=== PATIENT | female | born 1975 | race Caucasian/White ===

== ENCOUNTER 2017-04-01 10:35 | Emergency (ER) | payer BC ==
[2017-04-01] MEDS ORDERED: Ketorolac 60 MG/2 ML SDV IM ONE (10:54)
--- NOTE | 2017-04-01 10:59 | EDM.PDOC ---
ED HPI GENERAL MEDICAL PROBLEM - General Chief Complaint: Lower Extremity Injury/Pain Stated Complaint: LEFT LEG PAIN Time Seen by Provider: 04/01/17 10:56 Source of Information: Reports: Patient History Limitations: Reports: No Limitations - History of Present Illness INITIAL COMMENTS - FREE TEXT/NARRATIVE: History of present illness: [41-year-old female presenting today with acute onset of pain to the dorsal aspect of her left foot radiating down into the ankle on the external lateral side she denies any history of trauma indicates she woke this way but that she does walk a lot on her feet.] Review of systems: As per history of present illness and below otherwise all systems reviewed and negative. Past medical history: As per history of present illness and as reviewed below otherwise noncontributory. Surgical history: As per history of present illness and as reviewed below otherwise noncontributory. Social history: No reported history of drug or alcohol abuse. Family history: As per history of present illness and as reviewed below otherwise noncontributory. Physical exam: HEENT: Atraumatic, normocephalic, pupils reactive, negative for conjunctival pallor or scleral icterus, mucous membranes moist, throat clear, neck supple, nontender, trachea midline. Lungs: Clear to auscultation, breath sounds equal bilaterally, chest nontender. Heart: S1S2, regular, negative for clicks, rubs, or JVD. Abdomen: Soft, nondistended, nontender. Negative for masses or hepatosplenomegaly. Negative for costovertebral tenderness. Pelvis: Stable nontender. Genitourinary: Deferred. Rectal: Deferred. Extremities: Atraumatic, negative for cords or calf pain. Neurovascular unremarkable. Some amount of point tenderness to the dorsal aspects as well as the external malleolar area of the left foot Neuro: Awake, alert, oriented. Cranial nerves II through XII unremarkable. Cerebellum unremarkable. Motor and sensory unremarkable throughout. Exam nonfocal. Diagnostics: [X-ray of left foot and ankle] Therapeutics: [60 milligrams IM Toradol IM Norflex] Impression: [#1 for pain #2 ankle pain] Plan: [Norflex, meloxicam, referral to podiatry] Definitive disposition and diagnosis as appropriate pending reevaluation and review of above. 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 Musculoskeletal History: Reports: None Neurological History: Reports: None Psychiatric History: Reports: None Endocrine/Metabolic History: Reports: None Hematologic History: Reports: None Immunologic History: Reports: None Oncologic (Cancer) History: Reports: None Dermatologic History: Reports: None - Past Surgical History Head Surgeries/Procedures: Reports: None HEENT Surgical History: Reports: Tonsillectomy Cardiovascular Surgical History: Reports: None Respiratory Surgical History: Reports: None GI Surgical History: Reports: Cholecystectomy Female Surgical History: Reports: None Endocrine Surgical History: Reports: None Neurological Surgical History: Reports: None Musculoskeletal Surgical History: Reports: None Oncologic Surgical History: Reports: None Dermatological Surgical History: Reports: None Social & Family History - Family History Family Medical History: Noncontributory - Tobacco Use Smoking Status *Q: Never Smoker Second Hand Smoke Exposure: No - Caffeine Use Caffeine Use: Reports: None - Alcohol Use Days Per Week of Alcohol Use: 0 - Recreational Drug Use Recreational Drug Use: No Review of Systems - Review of Systems Review Of Systems: See Below (History of present illness) ED EXAM, GENERAL - Physical Exam Exam: See Below (See history of present illness) Course - Vital Signs Last Recorded V/S: Last Vital Signs Temp 36.2 C 04/01/17 10:45 Pulse 101 H 04/01/17 10:45 Resp 18 04/01/17 10:45 BP 188/85 H 04/01/17 10:45 Pulse Ox 95 04/01/17 10:45 - Orders/Labs/Meds Orders: Active Orders 24 hr Category Date Time Status Ankle Min 3V Lt [CR] Stat Exams 04/01/17 10:55 Taken Foot Comp Min 3V Lt [CR] Stat Exams 04/01/17 10:55 Taken Orphenadrine [Norflex] Med 04/01/17 11:00 Active 60 mg IM Q12H Medication Orders Orphenadrine Citrate (Norflex) 60 mg IM Q12H JEN Last Admin: 04/01/17 11:19 Dose: 60 mg Meds: Medications Generic Name Dose Route Start Last Admin Trade Name Freq PRN Reason Stop Dose Admin Orphenadrine Citrate 60 mg 04/01/17 11:00 04/01/17 11:19 Norflex IM 60 mg Q12H JEN Administration Discontinued Medications Generic Name Dose Route Start Last Admin Trade Name Freq PRN Reason Stop Dose Admin Ketorolac Tromethamine 60 mg 04/01/17 10:54 04/01/17 11:19 Toradol IM 04/01/17 10:55 60 mg ONETIME ONE Administration Departure - Departure Time of Disposition: 12:10 Disposition: Home, Self-Care 01 Condition: Good Clinical Impression: Foot pain - Discharge Information Referrals: PCP,None [Primary Care Provider] - Forms: ED Department Discharge Additional Instructions: The following information is given to patients seen in the emergency department who are being discharged to home. This information is to outline your options for follow-up care. We provide all patients seen in our emergency department with a follow-up referral. The need for follow-up, as well as the timing and circumstances, are variable depending upon the specifics of your emergency department visit. If you don't have a primary care physician on staff, we will provide you with a referral. We always advise you to contact your personal physician following an emergency department visit to inform them of the circumstance of the visit and for follow-up with them and/or the need for any referrals to a consulting specialist. The emergency department will also refer you to a specialist when appropriate. This referral assures that you have the opportunity for follow-up care with a specialist. All of these measure are taken in an effort to provide you with optimal care, which includes your follow-up. Under all circumstances we always encourage you to contact your private physician who remains a resource for coordinating your care. When calling for follow-up care, please make the office aware that this follow-up is from your recent emergency room visit. If for any reason you are refused follow-up, please contact the [facility] Emergency Department at and asked to speak to the emergency department charge nurse. Take medication as directed Follow-up with Primary care in 2-3 days Follow-up with podiatry as provided Dr Samuel Freeman, SE[facility] [address] [facility] [address] [place] [address] [facility] [address] Parrish, [facility] Podiatry [address] [place] [address] - My Orders Last 24 Hours: My Active Orders 04/01/17 10:55 Ankle Min 3V Lt [CR] Stat Foot Comp Min 3V Lt [CR] Stat 04/01/17 11:00 Orphenadrine [Norflex] 60 mg IM Q12H - Assessment/Plan Last 24 Hours: My Active Orders 04/01/17 10:55 Ankle Min 3V Lt [CR] Stat Foot Comp Min 3V Lt [CR] Stat 04/01/17 11:00 Orphenadrine [Norflex] 60 mg IM Q12H
[2017-04-01] MEDS ORDERED: Morphine 10 MG/ML Syringe IM ONE (12:18)
[2017-04-01] MEDS ORDERED: Ondansetron 4 MG Tab.DIS PO ONE (12:19)
[2017-04-01] MEDS ORDERED: Morphine 2 MG/ML Syringe IM ONE (12:33)
[2017-04-01 13:33] VITALS: BP 156/92
--- NOTE | 2017-04-03 13:20 | CR ---
EXAM DATE: 04/01/17 PATIENT'S AGE: 41 Patient: MOLLY HINES Facility: [place], [place] Site . Site : 1975 Study: XRay Extremity Left ankle [id number]/28/2017 11:28:40 AM Ordering Physician: Doctor Albright Final Report: HISTORY: Ankle pain. Findings: Three views of the left ankle are provided. There are no findings for fracture or dislocation. The ankle joint space appears normally aligned. Minor spurring is noted along the anterior and medial aspect of the tibia. Dictated by Hank Newby MD @ Apr 01 2017 11:43AM (Electronic Signature) Report Signed by Proxy. FIORDALIZA
--- NOTE | 2017-04-03 13:22 | CR ---
EXAM DATE: 04/01/17 PATIENT'S AGE: 41 Patient: MOLLY HINES Facility: [place], [place] : 1975 Study: XRay Extremity Left FOOT [id number]/28/2017 11:31:59 AM Ordering Physician: JAIME WILSON NP Final Report: HISTORY: Foot pain. Findings: Three views of the left foot are provided. There are no findings for fracture, dislocation or arthritic change throughout the foot. Dictated by Hank Newby MD @ Apr 01 2017 11:46AM (Electronic Signature) Report Signed by Proxy. FIORDALIZA
--- NOTE | 2017-04-03 13:23 | US ---
EXAM DATE: 04/01/17 PATIENT'S AGE: 41 Patient: MOLLY HINES Facility: [place], [place] Site . Site : 1975 Study: US Extremity [id number]/28/2017 1:18:13 PM Ordering Physician: Doctor Albright Final Report: INDICATION: Left lower extremity pain. TECHNIQUE: Ultrasound venous duplex lower left extremity. Compression venous exam was performed using simms-scale, color Doppler, and spectral Doppler analysis. COMPARISON: No prior. FINDINGS: Sonographic imaging demonstrates the left common femoral, deep femoral, superficial femoral, popliteal, posterior tibial and greater saphenous veins to be fully compressible with normal color Doppler blood flow. IMPRESSION: No deep venous thrombosis within the left lower extremity. Dictated by Chang Curry MD @ 04/01/2017 1:24:41 PM Dictated by: Chang Curry MD @ 04/01/2017 13:24:48 (Electronic Signature) Report Signed by Proxy. FIORDALIZA
== END 2017-04-01 13:56 | disposition home or self-care (01) ==
LOC: MW.ED 10:35
DX: M25.572 Pain in left ankle and joints of left foot (principal)
CPT/HCPCS: 73610; 73630; 93971; 96372; 99284; A9270; J1885; J2270; J2360; 99283

== ENCOUNTER 2018-07-28 06:42 | Emergency (ER) | payer BC ==
--- NOTE | 2018-07-28 07:45 | EDM.PDOC ---
ED HPI GENERAL MEDICAL PROBLEM - General Chief Complaint: ENT Problem Stated Complaint: TROUBLE SWALLOWING, CAN'T BREATHE Time Seen by Provider: 07/28/18 07:41 - History of Present Illness INITIAL COMMENTS - FREE TEXT/NARRATIVE: HISTORY AND PHYSICAL: History of present illness: Patient's 42-year-old white female presents with concern of cough congestion sore throat or last several days has been no nausea vomiting fever chills or other complaints. Review of systems: As per history of present illness and below otherwise all systems reviewed and negative. Past medical history: As per history of present illness and as reviewed below otherwise noncontributory. Surgical history: As per history of present illness and as reviewed below otherwise noncontributory. Social history: No reported history of drug or alcohol abuse. Family history: As per history of present illness and as reviewed below otherwise noncontributory. Physical exam: HEENT: Atraumatic, normocephalic, pupils reactive, negative for conjunctival pallor or scleral icterus, mucous membranes moist, throat injected, neck supple , nontender, trachea midline. Lungs: Clear to auscultation, breath sounds equal bilaterally, chest nontender. Heart: S1S2, regular, negative for clicks, rubs, or JVD. Abdomen: Soft, nondistended, nontender. Negative for masses or hepatosplenomegaly. Negative for costovertebral tenderness. Pelvis: Stable nontender. Genitourinary: Deferred. Rectal: Deferred. Extremities: Atraumatic, negative for cords or calf pain. Neurovascular unremarkable. Neuro: Awake, alert, oriented. Cranial nerves II through XII unremarkable. Cerebellum unremarkable. Motor and sensory unremarkable throughout. Exam nonfocal. Diagnostics: Influenza screen rapid strep Therapeutics: None Impression: #1 tracheobronchitis #2 pharyngitis Definitive disposition and diagnosis as appropriate pending reevaluation and review of above. throat Pain Score (Numeric/FACES): 8 - Related Data Allergies Allergy/AdvReac Type Severity Reaction Status Date / Time No Known Allergies Allergy Verified 07/28/18 06:53 Home Meds: Home Meds . 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: Musculoskeletal History: Reports: None Neurological History: Reports: None Psychiatric History: Reports: None Endocrine/Metabolic History: Reports: None Hematologic History: Reports: None Immunologic History: Reports: None Oncologic (Cancer) History: Reports: None Dermatologic History: Reports: None - Infectious Disease History Infectious Disease History: Reports: None - Past Surgical History Head Surgeries/Procedures: Reports: None HEENT Surgical History: Reports: Tonsillectomy Cardiovascular Surgical History: Reports: None Respiratory Surgical History: Reports: None GI Surgical History: Reports: Cholecystectomy Female Surgical History: Reports: None Endocrine Surgical History: Reports: None Neurological Surgical History: Reports: None Musculoskeletal Surgical History: Reports: None Oncologic Surgical History: Reports: None Dermatological Surgical History: Reports: None Social & Family History - Family History Family Medical History: Noncontributory - Tobacco Use Smoking Status *Q: Never Smoker - Caffeine Use Caffeine Use: Reports: None - Recreational Drug Use Recreational Drug Use: No ED ROS GENERAL - Review of Systems Review Of Systems: ROS reveals no pertinent complaints other than HPI. ED EXAM, GENERAL - Physical Exam Exam: See Below (See dictation) Course - Vital Signs Last Recorded V/S: Last Vital Signs Temp 36.1 C 07/28/18 06:54 Pulse 82 07/28/18 06:54 Resp 18 07/28/18 06:54 BP 121/63 07/28/18 06:54 Pulse Ox 98 07/28/18 06:54 - Orders/Labs/Meds Orders: Active Orders 24 hr Category Date Time Status CULTURE STREP A CONFIRMATION [RM] Stat Lab 07/28/18 07:01 Results STREP SCRN A RAPID W CULT CONF [RM] Stat Lab 07/28/18 07:01 Results Departure - Departure Time of Disposition: 07:44 Disposition: Home, Self-Care 01 Condition: Good Clinical Impression: Pharyngitis, Tracheobronchitis - Discharge Information Referrals: Terra Loera MD [Primary Care Provider] - Additional Instructions: The following information is given to patients seen in the emergency department who are being discharged to home. This information is to outline your options for follow-up care. We provide all patients seen in our emergency department with a follow-up referral. The need for follow-up, as well as the timing and circumstances, are variable depending upon the specifics of your emergency department visit. If you don't have a primary care physician on staff, we will provide you with a referral. We always advise you to contact your personal physician following an emergency department visit to inform them of the circumstance of the visit and for follow-up with them and/or the need for any referrals to a consulting specialist. The emergency department will also refer you to a specialist when appropriate. This referral assures that you have the opportunity for followup care with a specialist. All of these measure are taken in an effort to provide you with optimal care, which includes your followup. Under all circumstances we always encourage you to contact your private physician who remains a resource for coordinating your care. When calling for followup care, please make the office aware that this follow-up is from your recent emergency room visit. If for any reason you are refused follow-up, please contact the [facility] emergency department at and asked to speak to the emergency department charge nurse. Albuterol azithromycin as prescribed push fluids Motrin/Tylenol as directed return as needed as discussed
[2018-07-28 07:58] VITALS: BP 103/60
== END 2018-07-28 07:53 | disposition home or self-care (01) ==
LOC: MW.ED 06:42
DX: J40 Bronchitis, not specified as acute or chronic (principal); J02.9 Acute pharyngitis, unspecified
CPT/HCPCS: 87081; 87804; 87880-QW; 99283

== ENCOUNTER 2022-03-25 07:59 | Day surgery (SDC) | payer BC ==
[~2022-03-25 07:59] MED LIST: Lactated Ringers 1,000 ML IV SCH; Propofol 200 MG/20 ML SDV ONE
[2022-03-25] MEDS ORDERED: Ondansetron 4 MG/2 ML SDV ONE (09:21)
[2022-03-25] MEDS ORDERED: Water For Injection, Sterile 20 ML ONE (09:25)
[2022-03-25] MEDS ORDERED: Dexmedetomidine 200 MCG/2 ML SDV ONE (09:25)
[2022-03-25] MEDS ORDERED: Propofol 200 MG/20 ML SDV ONE (09:38)
[2022-03-25 12:47] VITALS: BP 104/61; PULSE 89
== END 2022-03-25 10:30 | disposition home or self-care (01) ==
LOC: MW.SDS 07:59
PROVIDERS: ATTEND Surgery
DX: K52.9 Noninfective gastroenteritis and colitis, unspecified (principal); K64.1 Second degree hemorrhoids; K59.09 Other constipation; I10 Essential (primary) hypertension; E66.01 Morbid (severe) obesity due to excess calories; E11.9 Type 2 diabetes mellitus without complications; Z79.899 Other long term (current) drug therapy; Z68.41 Body mass index [BMI] 40.0-44.9, adult; Z79.84 Long term (current) use of oral hypoglycemic drugs; Z98.890 Other specified postprocedural states; Z90.49 Acquired absence of other specified parts of digestive tract
CPT/HCPCS: 45380; 81025; 82947; J2405; J2704; J7120; 00811